=== PATIENT | male | born 1970 | race American Indian/Alaskan Native ===

== ENCOUNTER 2016-12-25 10:22 | Emergency (ER) | payer SELFPAY ==
[2016-12-25] MEDS ORDERED: Sodium Chloride 0.9% 10 ML Syringe FLUSH PRN (10:36)
[2016-12-25] MEDS ORDERED: Pantoprazole 40 MG Vial IVPUSH ONE (10:43)
[2016-12-25] MEDS ORDERED: Sodium Chloride 0.9% 1,000 ML IV SCH (10:45)
[2016-12-25] MEDS ORDERED: Morphine 4 MG/ML Syringe IVPUSH ONE (11:31)
[2016-12-25] MEDS ORDERED: Ketorolac 30 MG/ML SDV IVPUSH ONE (11:35)
[2016-12-25 11:37] VITALS: BP 134/105
[2016-12-25 12:03] LABS: CHLORIDE,CL 104 mmol/L (98-107); SODIUM,NA 141 mmol/L (136-145)
--- NOTE | 2016-12-28 07:54 | ER ---
Date of Service: 12/25/2016 SUBJECTIVE: Juan presents to the emergency room with constellation of complaints. His primary complaint is that of vomiting blood. He also states that he felt he has been feeling extremely weak and had an episode of near- syncope yesterday. The patient states that he has been feeling poorly for several days. He also complains of some left anterior upper respirophasic chest discomfort. The patient states that he has been drinking heavily recently. He has been under a lot of stress because of recent loss of his son as well as his numerous other family members. He currently is working here in [place] but normally lives in [place], [place]. PAST MEDICAL HISTORY: 1. Coronary artery disease, currently has [address] 2. Anxiety. 3. Hypertension. 4. Carotid endarterectomy. 5. PTSD. 6. Non-Hodgkin's lymphoma. MEDICATIONS: None. ALLERGIES: Caramel, latex, cinnamon, and chocolate. REVIEW OF SYSTEMS: General: No fever or chills. HEENT: No sore throat, rhinorrhea, congestion. Respiratory: No shortness breath. Cardiac: Please see history of present illness. GI: Please see history of present illness. Positive for hematemesis. No melena or hematochezia. : Denies any dysuria. Musculoskeletal: No myalgias or arthralgias. Neurologic: Positive for near-syncope and lightheadedness. PHYSICAL EXAMINATION: General: This is a 46-year-old male patient, who is in mild to moderate amount of distress. Vital Signs: Blood pressure is 134/105, heart rate is 109, temp is 36.1, respiratory rate is 14, O2 saturations 96%. Skin: Warm, pink, and dry. HEENT: Head is normocephalic, atraumatic. Eyes, PERRLA. Extraocular movements are intact. Mouth, oral mucosa is moist. Lungs: Clear to auscultation. Heart: Regular rate and rhythm. Abdomen: Soft, nontender. There is no hepatosplenomegaly or masses noted. Extremities: Without edema. Neurologic: He is alert, oriented, answers all questions appropriately. His speech is fluent. His gait is within normal limits. DIAGNOSTIC DATA: A 12-lead EKG was obtained showing a sinus rhythm without any acute ST or T-wave changes. LABORATORY DATA: WBC is 14.8, hemoglobin is 18.2, platelets are 257. Coags; PT is 9.9, INR is 0.9. Chemistry; sodium is 141, potassium is 3.5, chloride is 104, bicarb is 23, BUN is 10, creatinine 0.8. GFR is greater than 60. Glucose is 108. Lactic acid is 2.0, calcium is 9.0, corrected calcium is 9.24, total bilirubin is 0.4, AST is 20, ALT is 31, alkaline phosphatase is 50, CK is 151, CK-MB is 1.0, troponin is 0.00. TSH is 0.291. Fecal occult blood test was performed and was positive. EMERGENCY ROOM COURSE: 1. IV access was established. He was started on normal saline, but the patient needed to leave prior to infusion of the entire liter. He was also given Protonix 40 mg IV. He remained stable in my care in the emergency room but was continued to experience the left chest wall pain at the time of discharge. 2. Upper GI bleed with hematemesis and positive fecal occult blood. 3. Chest wall pain. PLAN: The patient was discharged, although he advised that he requires further workup including upper endoscopy to determine the cause of his GI bleeding. He states that he would follow up either here or in [place] as he is currently working construction. He was advised that he should not operate any machinery or drive. I did start him on Protonix 40 mg once daily. He was advised that this could be a potentially life-threatening illness requiring further evaluation and treatment. All questions were answered. MWK: 12/25/2016 19:37:11 MODL: 12/25/2016 22:11:06 /[id number]
== END 2016-12-25 12:25 | disposition home or self-care (01) ==
LOC: VM.ED 10:22
DX: K92.2 Gastrointestinal hemorrhage, unspecified (principal); R19.5 Other fecal abnormalities; R07.89 Other chest pain; I25.10 Atherosclerotic heart disease of native coronary artery without angina pectoris; F41.9 Anxiety disorder, unspecified; I10 Essential (primary) hypertension; Z85.72 Personal history of non-Hodgkin lymphomas; Z91.040 Latex allergy status; Z91.018 Allergy to other foods
CPT/HCPCS: 71010; 80053; 82274; 82550; 82553; 83605; 84443; 84484; 85025; 85610; 93005; 96361; 96374; 96375; 99285; C9113; J1885; J7030; 99284-GF

== ENCOUNTER 2016-12-31 08:43 | Emergency (ER) | payer SELFPAY ==
[2016-12-31] MEDS ORDERED: Lidocaine 1% with EPINEPHrine 1:100,000 20 ML MDV INFILT PRN (08:48)
[2016-12-31 08:58] VITALS: BP 150/104
--- NOTE | 2016-12-31 09:04 | EDM.PDOC ---
ED HPI GENERAL MEDICAL PROBLEM - General Chief Complaint: Head Injury Stated Complaint: ER Time Seen by Provider: 12/31/16 08:48 Source of Information: Reports: Patient History Limitations: Reports: No Limitations - History of Present Illness INITIAL COMMENTS - FREE TEXT/NARRATIVE: Patient was working on a piece of equipment this morning at his home when he fell and hit the left side of his forehead against a piece of sharp metal. Onset: Today, Sudden Onset Date: 12/31/16 Onset Time: 08:20 Duration: Improving Location: Reports: Head Quality: Reports: Ache Improves with: Reports: Cold Therapy Worsens with: Reports: None Associated Symptoms: Reports: No Other Symptoms - Related Data Allergies Allergy/AdvReac Type Severity Reaction Status Date / Time caramel Allergy Other Verified 12/25/16 11:41 cinnamon Allergy Other Verified 12/25/16 10:36 latex Allergy Other Verified 12/25/16 11:41 chocolate Allergy Airway Uncoded 12/25/16 11:40 Tightness Home Meds: Home Meds ClonazePAM [KlonoPIN] 0.5 mg PO PRN 12/25/16 [History] Past Medical History Cardiovascular History: Reports: Angina, Hypertension, Prior Cardiac Arrest Gastrointestinal History: Reports: None Genitourinary History: Reports: None Psychiatric History: Reports: PTSD, Other (See Below) Other Psychiatric History: combat veterans syndrom Oncologic (Cancer) History: Reports: Non-Hodgkin's Lymphoma - Past Surgical History Cardiovascular Surgical History: Reports: Carotid Stents Social & Family History - Tobacco Use Smoking Status *Q: Current Every Day Smoker Years of Tobacco use: 20 Packs/Tins Daily: 3 Used Tobacco, but Quit: No - Caffeine Use Caffeine Use: Reports: Coffee, Soda - Recreational Drug Use Recreational Drug Use: No ED ROS GENERAL - Review of Systems Review Of Systems: ROS reveals no pertinent complaints other than HPI. ED EXAM, HEAD INJURY - Physical Exam Exam: See Below Exam Limited By: No Limitations General Appearance: Alert, WD/WN, No Apparent Distress Head: Normocephalic, Scalp Lacerations (6 cm transverse laceration to the left frontal bone area) Nexus Criteria: No: Posterior, Midline Cervical Tenderness, Evidence of Intoxication, Altered Level of Consciousness, Focal Neurological Deficit, Painful Distraction Injuries Eyes: Bilateral Eye: EOMI, Normal Inspection, PERRL Ears: Normal External Exam, Normal Canal, Hearing Grossly Normal, Normal TMs Nose: Normal Inspection, Normal Mucousa, No Blood Throat/Mouth: Normal Inspection, Normal Lips, Normal Teeth, Normal Gums, Normal Oropharynx, Normal Voice, No Airway Compromise Neck: Non-Tender, Full Range of Motion, Normal Alignment, Normal Inspection Respiratory: No Respiratory Distress, Lungs Clear, Normal Breath Sounds, No Accessory Muscle Use, Chest Non-Tender Cardiovascular: Normal Peripheral Pulses, Regular Rate, Rhythm, No Edema, No Gallop, No JVD, No Murmur, No Rub GI/Abdominal Exam: Normal Bowel Sounds, Soft, Non-Tender, No Organomegaly, No Distention, No Abnormal Bruit, No Mass Extremities: Normal Inspection, Normal Range of Motion, Non-Tender, No Pedal Edema, Normal Capillary Refill Neurologic: client experience manager II-XII nml As Tested, No Motor/Sensory Deficits, Alert, Normal Mood/Affect, Oriented x 3 Skin: Normal Color, Warm/Dry - [place] Coma Score Best Eye Response ([place]): (4) Open Spontaneously Best Verbal Response ([place]): (5) Oriented Best Motor Response ([place]): (6) Obeys Commands ED LACERATION/WOUND & JUAN PROC - Laceration/Wound Repair Left Occipital Head Lac/wound length in cm: 6 Appearance: Linear, Clean Distal NVT: Neuro & Vascular Intact Anesthetic Type: Local Local Anesthesia - Lidocaine (Xylocaine): 1% with EPI Local Anesthetic Volume: 5cc Skin Prep: Providone-Iodine (Betadine) Saline irrigation (cc's): 60 Exploration/Debridement/Repair: Wound Explored, Minimal Debridement, No Foreign Material Found Closed with: Sutures Suture Size: 4-0 # of Sutures: 8 Suture Type: Nylon, Interrupted Course - Orders/Labs/Meds Orders: Active Orders 24 hr Category Date Time Status Lidocaine 1% w/EPINEPHrine [Xylocaine 1% with Med 12/31/16 08:48 Ordered EPINEPHrine 1:100,000] 20 ml INFILT ONETIME PRN Medication Orders Lidocaine/Epinephrine (Xylocaine 1% With Epinephrine 1:100,000) 20 ml INFILT ONETIME PRN PRN Reason: Bleeding Meds: Medications Generic Name Dose Route Start Last Admin Trade Name Freq PRN Reason Stop Dose Admin Lidocaine/Epinephrine 20 ml 12/31/16 08:48 Xylocaine 1% With Epinephrine 1:100,000 INFILT ONETIME PRN Bleeding Departure - Departure Time of Disposition: 09:25 Disposition: Home, Self-Care 01 Condition: Good Clinical Impression: Scalp laceration - Discharge Information Instructions: Head Injury, Adult, [id number], Laceration Care, Adult, Easy-to -Read Forms: ED Department Discharge Additional Instructions: May returned to work light duty. - My Orders Last 24 Hours: My Active Orders 12/31/16 08:48 Lidocaine 1% w/EPINEPHrine [Xylocaine 1% with EPINEPHrine 1:100,000] 20 ml INFILT ONETIME PRN - Assessment/Plan Last 24 Hours: My Active Orders 12/31/16 08:48 Lidocaine 1% w/EPINEPHrine [Xylocaine 1% with EPINEPHrine 1:100,000] 20 ml INFILT ONETIME PRN
== END 2016-12-31 09:22 | disposition home or self-care (01) ==
LOC: VM.ED 08:43
DX: S01.01XA Laceration without foreign body of scalp, initial encounter (principal); I10 Essential (primary) hypertension; I25.2 Old myocardial infarction; F43.10 Post-traumatic stress disorder, unspecified; F17.210 Nicotine dependence, cigarettes, uncomplicated; Z91.018 Allergy to other foods; Z91.040 Latex allergy status; W18.30XA Fall on same level, unspecified, initial encounter; W22.8XXA Striking against or struck by other objects, initial encounter; Y92.009 Unspecified place in unspecified non-institutional (private) residence as the place of occurrence of the external cause; Y99.0 Civilian activity done for income or pay
CPT/HCPCS: 12002; 12013; 12014; 99283; 99283-GF-25

== ENCOUNTER 2017-02-14 14:25 | Emergency (ER) | payer SELFPAY ==
--- NOTE | 2017-02-14 14:48 | EDM.PDOC ---
ED HPI GENERAL MEDICAL PROBLEM - General Chief Complaint: Laceration Stated Complaint: CUT HIS ARM Time Seen by Provider: 02/14/17 14:35 Source of Information: Reports: Patient History Limitations: Reports: No Limitations - History of Present Illness INITIAL COMMENTS - FREE TEXT/NARRATIVE: Pt. 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 Pt. states that his tetanus is up to date. He denies any injury other than what is isolated to the R forearm. States he is not experiencing any paresthesia distal to the area of injury. Onset: Today Location: Reports: Upper Extremity, Right Quality: Reports: Sharp Severity: Mild Improves with: Reports: None Worsens with: Reports: Movement Context: Reports: Trauma - Related Data Allergies Allergy/AdvReac Type Severity Reaction Status Date / Time caramel Allergy Other Verified 12/31/16 09:00 cinnamon Allergy Other Verified 12/31/16 09:00 latex Allergy Other Verified 12/31/16 09:00 chocolate Allergy Airway Uncoded 12/25/16 11:40 Tightness Home Meds: Home Meds Aspirin [Colleen Chewable] 81 mg PO DAILY 12/31/16 [History] Past Medical History Cardiovascular History: Reports: Angina, Hypertension, Prior Cardiac Arrest Gastrointestinal History: Reports: None Genitourinary History: Reports: None Psychiatric History: Reports: PTSD, Other (See Below) Other Psychiatric History: combat veterans syndrom Oncologic (Cancer) History: Reports: Non-Hodgkin's Lymphoma - Past Surgical History Cardiovascular Surgical History: Reports: Carotid Stents Social & Family History - Tobacco Use Smoking Status *Q: Unknown Ever Smoked Years of Tobacco use: 20 Packs/Tins Daily: 3 Used Tobacco, but Quit: No - Caffeine Use Caffeine Use: Reports: Coffee, Soda - Recreational Drug Use Recreational Drug Use: No Review of Systems - Review of Systems Review Of Systems: See Below Constitutional: Reports: No Symptoms Musculoskeletal: Reports: Arm Pain ED EXAM, GENERAL - Physical Exam Exam: See Below General Appearance: Alert Extremities: Normal Inspection, Normal Range of Motion, Other (laceration to L forearm) Departure - Departure Time of Disposition: 14:50 Disposition: Home, Self-Care 01 Condition: Good Clinical Impression: Laceration - Discharge Information Instructions: Laceration Care, Adult, Laceration Care, Adult, [id number] Forms: ED Department Discharge Additional Instructions: Allow steri strips to fall off on their own. Keep open to air as much as possible. Keep covered today and if it continues to bleed. Follow-up in clinic if redness, swelling, or discharge. - Assessment/Plan Assessment:: laceration 8 cm Plan: Allow steri strips to fall off on their own. Keep open to air as much as possible. Keep covered today and if it continues to bleed. Follow-up in clinic if redness, swelling, or discharge.
[2017-02-14 15:38] VITALS: BP 159/102
== END 2017-02-14 14:50 | disposition home or self-care (01) ==
LOC: VM.ED 14:25
DX: S51.812A Laceration without foreign body of left forearm, initial encounter (principal); I10 Essential (primary) hypertension; Z79.82 Long term (current) use of aspirin; Z91.018 Allergy to other foods; Z91.040 Latex allergy status; W22.8XXA Striking against or struck by other objects, initial encounter; Y99.0 Civilian activity done for income or pay
CPT/HCPCS: 99282; 99282-GF

== ENCOUNTER 2017-05-28 17:21 | Emergency (ER) | payer OTHER ==
[2017-05-28] MEDS: LORazepam 2 MG/ML MDV IVPUSH ONE (17:51)
--- NOTE | 2017-05-28 17:51 | EDM.PDOC ---
ED HPI GENERAL MEDICAL PROBLEM - General Chief Complaint: Cardiovascular Problem Stated Complaint: chest pressure Time Seen by Provider: 05/28/17 17:25 Source of Information: Reports: Patient History Limitations: Reports: No Limitations - History of Present Illness INITIAL COMMENTS - FREE TEXT/NARRATIVE: Patient comes into the emergency department with a 4 hour onset of chest pressure. Patient states he also has a history of PTSD and severe anxiety. He is not on any medications for that. Patient states approximately around 1 PM this afternoon he started feeling chest pressure and decided to drink 2 or 3 alcoholic beverages to help calm him down for he thought it was more nerves/ anxiety related. After a couple hours with it not working he ended up taking 3 nitros about 10 minutes apart and also baby aspirin and states it has not helped with the chest pressure. He presents here to the emergency department for evaluation. Patient denies any radiation of this discomfort to the jaw or to the neck region. Denies any nausea vomiting diarrhea. States he is a smoker, approximately half a pack. Does have a history of drug-eluting stents x6 and also myocardial infarctions in the past. He is suppose to be on medications for that however he is currently not. Patient states that he has a lot of stress going on in his life has had abnormal sleep pattern for the last 4 months and increased stress within the home life along with at work. He states that the last 24-48 hours he's had significant stress related to home for waterline main break another house improvement issues that have gone astray. He believes this may be anxiety ridden however he is uncertain related to his heart history. Onset: Sudden Improves with: Reports: None Worsens with: Reports: None Associated Symptoms: Reports: Chest Pain Treatments BEAD FLIPPER: Reports: Aspirin, Nitroglycerin - Related Data Allergies Allergy/AdvReac Type Severity Reaction Status Date / Time caramel Allergy Other Verified 05/28/17 17:47 cinnamon Allergy Other Verified 05/28/17 17:47 latex Allergy Other Verified 05/28/17 17:47 chocolate Allergy Airway Uncoded 02/14/17 14:57 Tightness Home Meds: Home Meds Aspirin 81 mg PO DAILY 05/28/17 [History] hydrOXYzine HCl [Atarax] 50 mg PO BID #4 tab 05/28/17 [Rx] Past Medical History Cardiovascular History: Reports: Angina, Hypertension, Prior Cardiac Arrest Gastrointestinal History: Reports: None Other Gastrointestinal History: gastric ulcers Genitourinary History: Reports: None Psychiatric History: Reports: Other (See Below), PTSD Other Psychiatric History: combat veterans syndrom Hematologic History: Reports: Hemochromatosis Oncologic (Cancer) History: Reports: Non-Hodgkin's Lymphoma - Past Surgical History Cardiovascular Surgical History: Reports: Carotid Stents Social & Family History - Tobacco Use Smoking Status *Q: Unknown Ever Smoked Years of Tobacco use: 20 Packs/Tins Daily: 3 Used Tobacco, but Quit: No - Caffeine Use Caffeine Use: Reports: Coffee, Soda - Alcohol Use Days Per Week of Alcohol Use: 2 Number of Drinks Per Day: 5 Total Drinks Per Week: 10 - Recreational Drug Use Recreational Drug Use: No ED ROS GENERAL - Review of Systems Review Of Systems: See Below Constitutional: Reports: No Symptoms HEENT: Reports: No Symptoms Respiratory: Reports: No Symptoms Cardiovascular: Reports: Chest Pain GI/Abdominal: Reports: No Symptoms : Reports: No Symptoms Musculoskeletal: Reports: No Symptoms Skin: Reports: No Symptoms Neurological: Reports: No Symptoms Psychiatric: Reports: Anxiety, Other (PTSD ) ED EXAM, GENERAL - Physical Exam Exam: See Below Exam Limited By: No Limitations General Appearance: Alert, WD/WN, No Apparent Distress Head: Atraumatic, Normocephalic Respiratory/Chest: No Respiratory Distress, Lungs Clear, Normal Breath Sounds, No Accessory Muscle Use, Chest Non-Tender Cardiovascular: Normal Peripheral Pulses, Tachycardia Peripheral Pulses: 2+: Carotid (L), Carotid (R), Radial (L), Radial (R), Dorsalis Pedis (L), Dorsalis Pedis (R) GI/Abdominal: Normal Bowel Sounds, Soft, Non-Tender, No Distention Extremities: Normal Inspection, Normal Range of Motion Neurological: Alert, Oriented, CN II-XII Intact Psychiatric: Anxious Skin Exam: Warm, Dry, Intact, Normal Color EKG INTERPRETATION EKG Date: 05/28/17 Rate (Beats/Min): 110 QRS: RBBB Course - Vital Signs Last Recorded V/S: Last Vital Signs Temp 35.5 C 05/28/17 17:21 Pulse 124 H 05/28/17 18:21 Resp 20 05/28/17 18:21 BP 137/85 05/28/17 18:21 Pulse Ox 97 05/28/17 17:21 - Orders/Labs/Meds Orders: Active Orders 24 hr Category Date Time Status Cardiac Monitoring [RC] . DIRECTED Care 05/28/17 17:42 Active EKG 12 Lead [EKG Documentation Completion] [RC] STAT Care 05/28/17 17:54 Active Chest 1V Frontal [CR] Stat Exams 05/28/17 17:43 Taken Labs: Laboratory Tests 05/28/17 05/28/17 05/28/17 Range/Units 18:04 18:04 18:04 WBC 8.9 (4.0-10.0) x10^3/uL RBC 5.97 (4.5-6.0) x10^6/uL Hgb 19.5 H (14.0-18.0) g/dL Hct 55.6 H (40.0-52.0) % MCV 93.1 H (78.0-93.0) fL MCH 32.7 H (26.0-32.0) pg MCHC 35.1 (32.0-36.0) g/dL RDW Coeff of Ytlor 13.2 (10.0-15.0) % Plt Count 257 (130-400) x10^3/uL Neut % (Auto) 55.3 (50.0-80.0) % Lymph % (Auto) 35.3 (25.0-50.0) % [place] % (Auto) 6.2 (2.0-11.0) % Eos % (Auto) 2.7 (0.0-4.0) % Baso % (Auto) 0.5 (0.2-1.2) % PT (9.8-11.8) SEC INR (2.0-3.5) D-Dimer, Quantitative < 0.19 (<=0.58) mg/LFEU Sodium 143 (136-145) mmol/L Potassium 4.0 (3.5-5.1) mmol/L Chloride 108 H (98-107) mmol/L Carbon Dioxide 21 (21-32) mmol/L BUN 12 (7-18) mg/dL Creatinine 0.9 (0.70-1.30) mg/dL Est Cr Clr Drug Dosing TNP Estimated GFR (MDRD) > 60 Glucose 100 (74-106) mg/dL Calcium 8.7 (8.5-10.1) mg/dL Corrected Calcium 9.02 (8.5-10.1) mg/dL Total Bilirubin 0.3 (0.2-1.0) mg/dL AST 19 (15-37) U/L ALT 31 (16-63) U/L Alkaline Phosphatase 64 (46-116) U/L Creatine Kinase 91 (39-308) U/L Creatine Kinase Index 1.3 (0.0-4.0) % CK-MB (CK-2) 1.2 (0.0-3.6) ng/mL Troponin I < 0.017 (<=0.056) ng/mL Total Protein 7.8 (6.4-8.2) g/dL Albumin 3.6 (3.4-5.0) g/dL Globulin 4.2 Albumin/Globulin Ratio 0.86 Ethyl Alcohol (0-3) mg/dL 05/28/17 05/28/17 Range/Units 18:04 18:04 WBC (4.0-10.0) x10^3/uL RBC (4.5-6.0) x10^6/uL Hgb (14.0-18.0) g/dL Hct (40.0-52.0) % MCV (78.0-93.0) fL MCH (26.0-32.0) pg MCHC (32.0-36.0) g/dL RDW Coeff of [place] (10.0-15.0) % Plt Count (130-400) x10^3/uL Neut % (Auto) (50.0-80.0) % Lymph % (Auto) (25.0-50.0) % [place] % (Auto) (2.0-11.0) % Eos % (Auto) (0.0-4.0) % Baso % (Auto) (0.2-1.2) % PT 9.3 L (9.8-11.8) SEC INR 0.9 L (2.0-3.5) D-Dimer, Quantitative (<=0.58) mg/LFEU Sodium (136-145) mmol/L Potassium (3.5-5.1) mmol/L Chloride (98-107) mmol/L Carbon Dioxide (21-32) mmol/L BUN (7-18) mg/dL Creatinine (0.70-1.30) mg/dL Est Cr Clr Drug Dosing Estimated GFR (MDRD) Glucose (74-106) mg/dL Calcium (8.5-10.1) mg/dL Corrected Calcium (8.5-10.1) mg/dL Total Bilirubin (0.2-1.0) mg/dL AST (15-37) U/L ALT (16-63) U/L Alkaline Phosphatase (46-116) U/L Creatine Kinase (39-308) U/L Creatine Kinase Index (0.0-4.0) % CK-MB (CK-2) (0.0-3.6) ng/mL Troponin I (<=0.056) ng/mL Total Protein (6.4-8.2) g/dL Albumin (3.4-5.0) g/dL Globulin Albumin/Globulin Ratio Ethyl Alcohol 143 H (0-3) mg/dL Meds: Medications Discontinued Medications Generic Name Dose Route Start Last Admin Trade Name Freq PRN Reason Stop Dose Admin Hydroxyzine HCl 50 mg 05/28/17 18:24 05/28/17 18:29 Atarax PO 05/28/17 18:25 50 mg ONETIME ONE Administration Lorazepam 0.5 mg 05/28/17 17:44 05/28/17 17:51 Ativan IVPUSH 05/28/17 17:45 0.5 mg ONETIME ONE Administration - Re-Assessments/Exams Free Text/Narrative Re-Assessment/Exam: 05/28/17 19:01 Did discuss that the patient had all his labs and x-ray came back negative. With the hydroxyzine the patient is starting to have decrease in anxiety his blood pressure and pulse rate have now dissipated. Discussed with the patient that we could keep him in redraw labs overnight on observation. Patient is not open to that. He would like to go home if anything does return he will return to the emergency department immediately. Did give him the risks of cardiac events been outside of the hospital including . Patient states that he understands that and would like to leave for he feels much better he does have a ride coming. His alcohol level is greater than 140 he's also had Ativan. Did advise him that it is not advisable for him to be driving while under the influence of benzodiazepines along with alcohol. Departure - Departure Time of Disposition: 19:00 Disposition: Home, Self-Care 01 Condition: Good Clinical Impression: Anxiety Prescriptions: hydrOXYzine HCl [Atarax] 50 mg PO BID #4 tab Forms: ED Department Discharge Additional Instructions: This recommended that he follow up with her PCP and set up an appointment with psychiatric providers through the [place] [facility] Activity and diet as tolerated Patient was provided 4 tablets of hydroxyzine 50 mg tabs can take them for increased anxiety episodes at least 4 hours apart Patient is advised to avoid large amounts of alcohol for neck and actually increase his anxiety Patient is advised to return to the emergency department if the chest discomfort returns - My Orders Last 24 Hours: My Active Orders 05/28/17 17:42 Cardiac Monitoring [RC] . DIRECTED 05/28/17 17:43 Chest 1V Frontal [CR] Stat 05/28/17 17:54 EKG 12 Lead [EKG Documentation Completion] [RC] STAT - Assessment/Plan Last 24 Hours: My Active Orders 05/28/17 17:42 Cardiac Monitoring [RC] . DIRECTED 05/28/17 17:43 Chest 1V Frontal [CR] Stat 05/28/17 17:54 EKG 12 Lead [EKG Documentation Completion] [RC] STAT
[2017-05-28] MEDS: hydrOXYzine HCl 25 MG Tab PO ONE (18:29)
[2017-05-28 18:42] LABS: CHLORIDE,CL 108 mmol/L (98-107); SODIUM,NA 143 mmol/L (136-145)
[2017-05-28] MEDS ORDERED: hydrOXYzine HCl 25 MG Tab ONE (19:05)
[2017-05-28 19:10] VITALS: BP 121/85
== END 2017-05-28 19:50 | disposition home or self-care (01) ==
LOC: VM.ED 17:21
DX: F41.9 Anxiety disorder, unspecified (principal); I10 Essential (primary) hypertension; Z91.040 Latex allergy status; Z79.82 Long term (current) use of aspirin
CPT/HCPCS: 36415; 71045; 80053; 82550; 82553; 84484; 85025; 85379; 85610; 93005; 96374; 99285; A9270; G0480; J2060

== ENCOUNTER 2017-12-22 12:19 | Emergency (ER) | payer MEDICAID, OTHER ==
[2017-12-22] MEDS ORDERED: Sodium Chloride 0.9% 10 ML Syringe FLUSH PRN (12:37)
[2017-12-22] MEDS: Sodium Chloride 0.9% 1,000 ML IV ONE (13:14)
[2017-12-22] MEDS: Ondansetron 4 MG/2 ML SDV IVPUSH ONE (13:14)
[2017-12-22] MEDS: Ketorolac 30 MG/ML SDV IVPUSH ONE (13:16)
[2017-12-22 13:17] LABS: CHLORIDE,CL 103 mmol/L (98-107); SODIUM,NA 139 mmol/L (136-145)
[2017-12-22 13:18] LABS: ANION GAP 16.4 mmol/L (10-20)
[2017-12-22 13:23] VITALS: BP 161/101
--- NOTE | 2017-12-22 13:37 | EDM.PDOC ---
ED HPI GENERAL MEDICAL PROBLEM - General Chief Complaint: Abdominal Pain Stated Complaint: Epigastric pain Time Seen by Provider: 12/22/17 12:21 Source of Information: Reports: Patient, RN, RN Notes Reviewed History Limitations: Reports: No Limitations - History of Present Illness INITIAL COMMENTS - FREE TEXT/NARRATIVE: Patient presents to the ED at [facility] complaining of epigastric pain that started yesterday around noon. Patient states he has been vomiting and severe nausea. No diarrhea. Has a history of a vagotomy. No chest pain or SOB. No focal neurological complaints. Patient states his pain is sharp and stabbing. Pain is constant. Patient has not taken any medications for his symptoms. Pain does radiate between the shoulder blades. Onset Date: 12/21/17 Onset Time: 12:00 Epigastric Pain Score (Numeric/FACES): 8 - Related Data Allergies Allergy/AdvReac Type Severity Reaction Status Date / Time caramel Allergy Other Verified 12/22/17 13:18 cinnamon Allergy Other Verified 12/22/17 13:18 latex Allergy Other Verified 12/22/17 13:18 chocolate Allergy Airway Uncoded 12/22/17 13:18 Tightness Home Meds: Home Meds Aspirin 81 mg PO DAILY 05/28/17 [History] hydrOXYzine HCl [Atarax] 50 mg PO BID #4 tab 05/28/17 [Rx] Past Medical History Cardiovascular History: Reports: Angina, Hypertension, Prior Cardiac Arrest Gastrointestinal History: Reports: None Other Gastrointestinal History: gastric ulcers Genitourinary History: Reports: None Psychiatric History: Reports: Other (See Below), PTSD Other Psychiatric History: combat veterans syndrom Hematologic History: Reports: Hemochromatosis Oncologic (Cancer) History: Reports: Non-Hodgkin's Lymphoma - Past Surgical History Cardiovascular Surgical History: Reports: Carotid Stents Social & Family History - Caffeine Use Caffeine Use: Reports: Coffee, Soda ED ROS GENERAL - Review of Systems Review Of Systems: See Below Constitutional: Denies: Fever, Chills, Weakness Respiratory: Denies: Shortness of Breath, Cough Cardiovascular: Denies: Chest Pain, Palpitations GI/Abdominal: Reports: Abdominal Pain, Diarrhea, Nausea, Vomiting Skin: Reports: No Symptoms Neurological: Reports: No Symptoms. Denies: Dizziness, Headache ED EXAM, GI/ABD - Physical Exam Exam: See Below Exam Limited By: No Limitations General Appearance: Alert, No Apparent Distress Respiratory/Chest: No Respiratory Distress, Lungs Clear, Normal Breath Sounds Cardiovascular: Normal Peripheral Pulses, Regular Rate, Rhythm GI/Abdominal Exam: Guarding, Rigid, Tender (Epigastric), Abnormal Bowel Sounds ( Hyperactive) Neurological: Alert, Oriented Skin Exam: Warm, Dry, Normal Color Course - Vital Signs Last Recorded V/S: Last Vital Signs Temp 36.9 C 12/22/17 12:50 Pulse 97 12/22/17 12:50 Resp 20 12/22/17 12:50 BP 161/101 H 12/22/17 12:50 Pulse Ox 95 12/22/17 12:50 - Orders/Labs/Meds Orders: Active Orders 24 hr Category Date Time Status Abdomen Pelvis w Cont [CT] Stat Exams 12/22/17 12:38 Taken DRUG SCREEN, URINE [URCHEM] Stat Lab 12/22/17 13:05 Ordered UA W/MICROSCOPIC [URIN] Stat Lab 12/22/17 13:05 Ordered Sodium Chloride 0.9% [Saline Flush] Med 12/22/17 12:37 Active 10 ml FLUSH ASDIRECTED PRN Peripheral IV Insertion Adult [OM.PC] Routine Oth 12/22/17 12:37 Ordered Medication Orders Sodium Chloride (Saline Flush) 10 ml FLUSH ASDIRECTED PRN PRN Reason: Keep Vein Open Labs: Laboratory Tests 12/22/17 12/22/17 12/22/17 Range/Units 12:50 12:50 12:50 WBC 9.3 (4.0-10.0) x10^3/uL RBC 6.19 H (4.5-6.0) x10^6/uL Hgb 20.4 H (14.0-18.0) g/dL Hct 59.4 H (40.0-52.0) % MCV 96.0 H (78.0-93.0) fL MCH 33.0 H (26.0-32.0) pg MCHC 34.3 (32.0-36.0) g/dL RDW Coeff of Tylor 16.6 H (10.0-15.0) % Plt Count 218 (130-400) x10^3/uL Neut % (Auto) 63.4 (50.0-80.0) % Lymph % (Auto) 22.7 L (25.0-50.0) % Randall % (Auto) 10.6 (2.0-11.0) % Eos % (Auto) 2.4 (0.0-4.0) % Baso % (Auto) 0.9 (0.2-1.2) % Sodium 139 (136-145) mmol/L Potassium 3.4 L (3.5-5.1) mmol/L Chloride 103 (98-107) mmol/L Carbon Dioxide 23 (21-32) mmol/L Anion Gap 16.4 (10-20) mmol/L BUN 9 (7-18) mg/dL Creatinine 0.7 (0.70-1.30) mg/dL Est Cr Clr Drug Dosing TNP Estimated GFR (MDRD) > 60 Glucose 95 (74-106) mg/dL Lactic Acid 2.0 (0.4-2.0) mmol/L Calcium 8.7 (8.5-10.1) mg/dL Corrected Calcium 9.18 (8.5-10.1) mg/dL Total Bilirubin 0.8 (0.2-1.0) mg/dL AST 16 (15-37) U/L ALT 31 (16-63) U/L Alkaline Phosphatase 59 (46-116) U/L C-Reactive Protein 0.5 (<=0.9) mg/dL Total Protein 7.8 (6.4-8.2) g/dL Albumin 3.4 (3.4-5.0) g/dL Globulin 4.4 Albumin/Globulin Ratio 0.77 Amylase 50 (25-115) U/L Lipase 246 (73-393) U/L Urine Color (YELLOW) Urine Appearance (CLEAR) Urine pH (5.0-8.0) Ur Specific [place] Urine Protein (NEGATIVE) mg/dL Urine Glucose (UA) (NEGATIVE) mg/dL Urine Ketones (NEGATIVE) mg/dL Urine Occult Blood (NEGATIVE) Urine Nitrite (NEGATIVE) Urine Bilirubin (NEGATIVE) Urine Urobilinogen (0.2) EU/dL Ur Leukocyte Esterase (NEGATIVE) Urine RBC (NOT SEEN) /HPF Urine WBC (NOT SEEN) /HPF Ur Squamous Epith Cells (NEGATIVE) /HPF Urine Bacteria (NEGATIVE) /HPF Urine Mucus (NEGATIVE) /LPF Urine Opiates Screen (NEAGTIVE) Ur Buprenorphine Scrn (NEGATIVE) Ur Oxycodone Screen (NEGATIVE) Urine Methadone Screen (NEGATIVE) Ur Barbiturates Screen (NEGATIVE) Ur Tricyclics Screen (NEGATIVE) Ur Amphetamine Screen (NEGATIVE) U Methamphetamines Scrn (NEGATIVE) Urine MDMA Screen (NEGATIVE) U Benzodiazepines Scrn (NEGATIVE) U Cocaine Metab Screen (NEGATIVE) U Marijuana (THC) Screen (NEGATIVE) Ethyl Alcohol (0-3) mg/dL 12/22/17 12/22/17 12/22/17 Range/Units 12:50 13:05 13:05 WBC (4.0-10.0) x10^3/uL RBC (4.5-6.0) x10^6/uL Hgb (14.0-18.0) g/dL Hct (40.0-52.0) % MCV (78.0-93.0) fL MCH (26.0-32.0) pg MCHC (32.0-36.0) g/dL RDW Coeff of Tylor (10.0-15.0) % Plt Count (130-400) x10^3/uL Neut % (Auto) (50.0-80.0) % Lymph % (Auto) (25.0-50.0) % Randall % (Auto) (2.0-11.0) % Eos % (Auto) (0.0-4.0) % Baso % (Auto) (0.2-1.2) % Sodium (136-145) mmol/L Potassium (3.5-5.1) mmol/L Chloride (98-107) mmol/L Carbon Dioxide (21-32) mmol/L Anion Gap (10-20) mmol/L BUN (7-18) mg/dL Creatinine (0.70-1.30) mg/dL Est Cr Clr Drug Dosing Estimated GFR (MDRD) Glucose (74-106) mg/dL Lactic Acid (0.4-2.0) mmol/L Calcium (8.5-10.1) mg/dL Corrected Calcium (8.5-10.1) mg/dL Total Bilirubin (0.2-1.0) mg/dL AST (15-37) U/L ALT (16-63) U/L Alkaline Phosphatase (46-116) U/L C-Reactive Protein (<=0.9) mg/dL Total Protein (6.4-8.2) g/dL Albumin (3.4-5.0) g/dL Globulin Albumin/Globulin Ratio Amylase (25-115) U/L Lipase (73-393) U/L Urine Color Yellow (YELLOW) Urine Appearance Clear (CLEAR) Urine pH 6.0 (5.0-8.0) Ur Specific [place] 1.015 Urine Protein 100 H (NEGATIVE) mg/dL Urine Glucose (UA) Negative (NEGATIVE) mg/dL Urine Ketones Negative (NEGATIVE) mg/dL Urine Occult Blood Negative (NEGATIVE) Urine Nitrite Negative (NEGATIVE) Urine Bilirubin Negative (NEGATIVE) Urine Urobilinogen 0.2 (0.2) EU/dL Ur Leukocyte Esterase Negative (NEGATIVE) Urine RBC 0-5 (NOT SEEN) /HPF Urine WBC 0-5 (NOT SEEN) /HPF Ur Squamous Epith Cells Rare (NEGATIVE) /HPF Urine Bacteria Rare (NEGATIVE) /HPF Urine Mucus Not seen (NEGATIVE) /LPF Urine Opiates Screen Negative (NEAGTIVE) Ur Buprenorphine Scrn Negative (NEGATIVE) Ur Oxycodone Screen Negative (NEGATIVE) Urine Methadone Screen Negative (NEGATIVE) Ur Barbiturates Screen Negative (NEGATIVE) Ur Tricyclics Screen Negative (NEGATIVE) Ur Amphetamine Screen Negative (NEGATIVE) U Methamphetamines Scrn Negative (NEGATIVE) Urine MDMA Screen Negative (NEGATIVE) U Benzodiazepines Scrn Negative (NEGATIVE) U Cocaine Metab Screen Negative (NEGATIVE) U Marijuana (THC) Screen Negative (NEGATIVE) Ethyl Alcohol < 3 (0-3) mg/dL Meds: Medications Generic Name Dose Route Start Last Admin Trade Name Freq PRN Reason Stop Dose Admin Sodium Chloride 10 ml 12/22/17 12:37 Saline Flush FLUSH ASDIRECTED PRN Keep Vein Open Discontinued Medications Generic Name Dose Route Start Last Admin Trade Name Freq PRN Reason Stop Dose Admin Sodium Chloride 1,000 mls @ 999 mls/hr 12/22/17 12:37 12/22/17 13:14 Normal Saline IV 12/22/17 13:37 999 mls/hr ONETIME ONE Administration Iopamidol 100 ml 12/22/17 13:15 12/22/17 13:54 Isovue-300 (61%) IVPUSH 12/22/17 13:16 100 ml ONETIME ONE Administration Ketorolac Tromethamine 30 mg 12/22/17 12:37 12/22/17 13:16 Toradol IVPUSH 12/22/17 12:38 30 mg ONETIME ONE Administration Ondansetron HCl 4 mg 12/22/17 12:37 12/22/17 13:14 Zofran IVPUSH 12/22/17 12:38 4 mg ONETIME ONE Administration - Radiology Interpretation Free Text/Narrative:: CT Abd/Pelvis: No acute process See scanned report in EMR for details CT Results Date: 12/22/17 CT Results Time: 14:11 Departure - Departure Time of Disposition: 14:51 Disposition: Home, Self-Care 01 Clinical Impression: Epigastric pain High blood pressure Qualifiers: Hypertension type: unspecified Qualified Code(s): I10 - Essential (primary) hypertension - Discharge Information *PRESCRIPTION DRUG MONITORING PROGRAM REVIEWED*: Not Applicable *COPY OF PRESCRIPTION DRUG MONITORING REPORT IN PATIENT VASU: Not Applicable Instructions: Managing Your Hypertension, Hypertension Referrals: Tomy Brar NP [Emergency Provider] - 12/23/17 4:00 pm (Please see me in clinic at [facility] 4pm 12/23/2017) Forms: ED Department Discharge - Problem List Review Problem List Initiated/Reviewed/Updated: Yes - My Orders Last 24 Hours: My Active Orders 12/22/17 12:37 Sodium Chloride 0.9% [Saline Flush] 10 ml FLUSH ASDIRECTED PRN Peripheral IV Insertion Adult [OM.PC] Routine 12/22/17 12:38 Abdomen Pelvis w Cont [CT] Stat 12/22/17 13:05 DRUG SCREEN, URINE [URCHEM] Stat UA W/MICROSCOPIC [URIN] Stat - Assessment/Plan Last 24 Hours: My Active Orders 12/22/17 12:37 Sodium Chloride 0.9% [Saline Flush] 10 ml FLUSH ASDIRECTED PRN Peripheral IV Insertion Adult [OM.PC] Routine 12/22/17 12:38 Abdomen Pelvis w Cont [CT] Stat 12/22/17 13:05 DRUG SCREEN, URINE [URCHEM] Stat UA W/MICROSCOPIC [URIN] Stat Assessment:: Epigastric Pian High blood pressure without the diagnosis of Hypertension Plan: Discussed CT results with patient as well as labs. Will have patient follow up with me in clinic tomorrow to get HTN under control. Patient agrees with POC.
[2017-12-22] MEDS: Iopamidol 612 MG/ML 100 ML Bottle IVPUSH ONE (13:54)
== END 2017-12-22 15:11 | disposition home or self-care (01) ==
LOC: VM.ED 12:19
DX: R10.13 Epigastric pain (principal); I10 Essential (primary) hypertension; R11.2 Nausea with vomiting, unspecified; Z79.82 Long term (current) use of aspirin; Z91.018 Allergy to other foods; Z91.040 Latex allergy status
CPT/HCPCS: 36415; 74177; 80053; 80305; 81001; 82150; 83605; 83690; 85025; 86140; 96361; 96374; 96375; 99284; G0480; J1885; J2405; J7030; Q9967